=== PATIENT | male | born 1960 | race Caucasian/White ===

== ENCOUNTER 2018-11-29 10:56 | Emergency (ER) | payer OTHER ==
[2018-11-29 11:45] LABS: ABSOLUTE NEUTROPHIL COUNT 3.42; BASO % 0.5 % (0-6); EOS % 2.1 % (0-6); GRAN % 60.7 % (47-80); HEMATOCRIT 44.5 % (42.0-52.0); LYMPH % 29.3 % (16-45); MEAN CELL VOLUME 95.7 fl (81-97); MEAN CORPUSCULAR HEMOGLOBIN 32.3 pg (27-33); MEAN CORPUSCULAR HGB CONC 33.7 g/dl (32-36); MEAN PLATELET VOLUME 9.8 fl (7.4-10.4); MONO % 7.4 % (0-9); PLATELET COUNT 213 K/uL (130-400); RED BLOOD COUNT 4.65 M/uL (4.40-5.70); RED CELL DISTRIBUTION WIDTH 12.6 % (11.5-14.5); WHITE BLOOD COUNT W/O DIFF 5.6 K/uL (4.2-12.2)
--- NOTE | 2018-11-29 11:53 | Emergency Department Record ---
History of Present Illness - General Chief complaint: Eye Problem Stated complaint: LEFT EYE TROUBLE Time Seen by Provider: 11/29/18 11:06 Source: Patient Mode of Arrival: Ambulatory Limitations: No limitations Travel/Exposure to [facility] Within 21 Days of Symptoms: No - History of Present Illness Initial comments: pt had a transient loss of vision in his left eye for 3-5 minutes. 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 he had no pain and no zimmer. he states that when the vision came back at first it was black and white and squiggly. he now has normal vision. he has never had anything like this before MD chief complaint: Vision change Onset/Timin -: Minutes(s) Onset Description: Sudden Location: Left eye Place: Work Eye Symptoms: Decreased vision Severity: Moderate Consistency: Now resolved Associated Symptoms: None Treatments Prior to Arrival: None - Related Data Home Medications Medication Instructions Recorded Confirmed Last Taken No Home Med [NO HOME MEDS] 11/29/18 11/29/18 Unknown Allergies Allergy/AdvReac Type Severity Reaction Status Date / Time No Known Drug Allergies Allergy Verified 11/29/18 11:04 Travel Screening - Travel/Exposure Within Last 30 Days Have you traveled within the last 30 days?: No Review of Systems Reviewed: No additional complaints except as noted below Constitutional: Reports: As per HPI. Denies: Chills, Fever, Malaise, Night s weats, Weakness, Weight change Eyes: Reports: As per HPI, Vision change. Denies: Eye discharge, Eye pain, Photophobia ENT: Reports: As per HPI. Denies: Congestion, Dental pain, Ear pain, Epistaxis, Hearing loss, Throat pain Respiratory: Reports: As per HPI. Denies: Cough, Dyspnea, Hemoptysis, Stridor, Wheezes Cardiovascular: Reports: As per HPI. Denies: Arrhythmia, Chest pain, Dyspnea on exertion, Edema, Murmurs, Orthopnea, Palpitations, Paroxysmal nocturnal dyspnea, Rheumatic Fever, Syncope Endocrine: Reports: As per HPI. Denies: Fatigue, Heat or cold intolerance, Polydipsia, Polyuria Gastrointestinal: Reports: As per HPI. Denies: Abdominal pain, Constipation, Diarrhea, Hematemesis, Hematochezia, Melena, Nausea, Vomiting Genitourinary: Reports: As per HPI. Denies: Dysuria, Frequency, Hematuria, Incontinence, Retention, Testicular pain, Testicular mass, Urgency Musculoskeletal: Reports: As per HPI. Denies: Arthralgia, Back pain, Gout, Joint swelling, Myalgia, Neck pain Skin: Reports: As per HPI. Denies: Bruising, Change in color, Change in hair/nails, Lesions, Pruritus, Rash Neurological: Reports: As per HPI. Denies: Abnormal gait, Confusion, Headache, Numbness, Paresthesias, Seizure, Tingling, Tremors, Vertigo, Weakness Psychiatric: Reports: As per HPI. Denies: Anxiety, Auditory hallucinations, Depression, Homicidal thoughts, Suicidal thoughts, Visual hallucinations Hematological/Lymphatic: Reports: As per HPI. Denies: Anemia, Blood Clots, Easy bleeding, Easy bruising, Swollen glands Past Medical History - SOCIAL HISTORY Smoking Status: Never smoker Alcohol Use: Occasional Drug Use: None - RESPIRATORY Hx Respiratory Disorders: No - CARDIOVASCULAR Hx Cardio Disorders: No - NEURO Hx Neuro Disorders: No - GI Hx GI Disorders: No - Hx Genitourinary Disorders: No - ENDOCRINE Hx Endocrine Disorders: No - MUSCULOSKELETAL Hx Musculoskeletal Disorders: No - PSYCH Hx Psych Problems: No - HEMATOLOGY/ONCOLOGY Hx Hematology/Oncology Disorders: No Family Medical History Any Significant Family History?: No Physical Exam - General General Appearance: Alert, Oriented x3, Cooperative, Mild distress - Head Head exam: Normal inspection - Eye Eye exam: Normal appearance, PERRL, EOMI Pupils: Normal accommodation - ENT ENT exam: Normal exam, Mucous membranes moist, Normal external ear exam, Normal orophraynx Ear exam: Normal external inspection. negative: External canal tenderness Nasal Exam: Normal inspection. negative: Discharge, Sinus tenderness Mouth exam: Normal external inspection, Tongue normal Teeth exam: Normal inspection. negative: Dental caries Throat exam: Normal inspection. negative: Tonsillar erythema, Tonsillar exudate - Neck Neck exam: Normal inspection, Full ROM. negative: Tenderness - Respiratory Respiratory exam: Normal lung sounds bilaterally. negative: Respiratory distress - Cardiovascular Cardiovascular Exam: Regular rate, Normal rhythm, Normal heart sounds - GI/Abdominal GI/Abdominal exam: Soft, Normal bowel sounds. negative: Tenderness - Rectal Rectal exam: Deferred - exam: Deferred - Extremities Extremities exam: Normal inspection, Full ROM, Normal capillary refill. negative: Tenderness - Back Back exam: Reports: Normal inspection, Full ROM. Denies: Muscle spasm, Rash noted, Tenderness - Neurological Neurological exam: Alert, CN II-XII intact, Normal gait, Oriented X3 - Psychiatric Psychiatric exam: Normal affect, Normal mood - Skin Skin exam: Dry, Intact, Normal color, Warm Course Vital Signs 11/29/18 11:01 Temperature 97.8 F Pulse Rate 69 Respiratory 18 Rate Blood Pressure 131/89 Pulse Ox 96 - Reevaluation(s) Reevaluation #1: 11/29/18 13:21 pt remained symptom free Medical Decision Making - Lab Data Result diagrams: 11/29/18 11:30 11/29/18 11:30 Lab Results 11/29/18 Range/Units 11:30 WBC 5.6 (4.2-12.2) K/uL RBC 4.65 (4.40-5.70) M/uL Hgb 15.0 (14.0-18.0) gm/dl Hct 44.5 (42.0-52.0) % MCV 95.7 (81-97) fl MCH 32.3 (27-33) pg MCHC 33.7 (32-36) g/dl RDW 12.6 (11.5-14.5) % Plt Count 213 (130-400) K/uL MPV 9.8 (7.4-10.4) fl Gran % 60.7 (47-80) % Lymphocytes % 29.3 (16-45) % Monocytes % 7.4 (0-9) % Eosinophils % 2.1 (0-6) % Basophils % 0.5 (0-6) % Absolute Neutrophils 3.42 Disposition Disposition: Transfer Clinical Impression: AFX (amaurosis fugax) [facility]: needs neurology Accepting Physician: dr adkins Time Discussed w/Accepting Physician: 13:28 Forms: Patient Portal Access Quality - Quality Measures Quality Measures: N/A - Blood Pressure Screening Does Patient Have Any of the Following: No Blood Pressure Classification: Pre-Hypertensive BP Reading Systolic Measurement: 131 Diastolic Measurement: 89 Screening for High Blood Pressure: < Pre-Hypertensive BP, F/U Documented > [G8950] Pre-Hypertensive Follow-up Interventions: Follow-up with rescreen every year.
[2018-11-29 11:54] LABS: BLOOD UREA NITROGEN 16 mg/dL (6-20); CREATININE 0.7 mg/dL (0.7-1.2); EST GLOMERULAR FILTRATION RATE > 60 mL/min
[2018-11-29 11:55] LABS: TOTAL PROTEIN 6.9 g/dL (6.6-8.7)
[2018-11-29 11:57] LABS: GLUCOSE,RANDOM 102 mg/dL (74-109)
[2018-11-29 11:59] LABS: ALT/SGPT 15 U/L (<41)
[2018-11-29 12:00] LABS: ALBUMIN 4.6 g/dL (4.0-5.0); ALKALINE PHOSPHATASE 61 U/L (40-129); AST/SGOT 20 U/L (10.0-50.0)
[2018-11-29] MEDS ORDERED: ASPIRIN 81 MG CHEWABLE TABLET PO ONE (13:27)
--- NOTE | 2018-12-01 16:52 | CT SCAN REPORT ---
DATE: 11/29/2018. EXAM: CT SCAN OF THE BRAIN WITHOUT CONTRAST. HISTORY: A FIVE-MINUTE EPISODE OF LEFT EYE BLINDNESS. SYMPTOMS HAVE SINCE RESOLVED. NO INJURY. TECHNIQUE: Standard CT imaging of the brain was performed in the axial plane without contrast. Additional coronal and sagittal reformatted images were also performed. COMPARISON: None. FINDINGS: The brain volume is normal. There is no mass, mass effect, intracranial hemorrhage, visible acute infarct, or abnormal extra-axial fluid. The skull is intact. The orbits are unremarkable. There is mild mucosal thickening within the ethmoid sinuses. A mucus retention cyst is present within the left maxillary sinus. The mastoid air cells are clear. IMPRESSION: NO ACUTE INTRACRANIAL ABNORMALITY. Job Number: [id number] [facility]
== END 2018-11-29 15:41 | disposition short-term general hospital (02) ==
LOC: ER 10:56
DX: G45.3 Amaurosis fugax (principal)
CPT/HCPCS: 70450; 80053; 85025; 85651; 93005; 93010; 99285